=== PATIENT | male | born 1935 | race Hispanic/Latino ===

== ENCOUNTER 2018-03-02 11:12 | Inpatient (IN) | payer MEDICARE ==
--- NOTE | 2018-03-02 13:08 | XRay Report ---
AP CHEST: HISTORY: Short of breath No comparison. There are hazy lower lobe opacities which probably represent atelectasis or less likely small pleural effusions. The upper lung zones are clear. Heart size is within normal limits. Normal pulmonary vascularity. IMPRESSION: Bibasilar atelectatic changes.
[2018-03-02 13:17] LABS: Basophils # (Auto) 0.1 K/mm3 (0.0-0.1); Basophils % (Auto) 0.7 % (0.0-1.8); Eosinophils # (Auto) 0.3 K/mm3 (0.0-0.4); Eosinophils % (Auto) 2.5 % (0.0-4.3); Hematocrit 35.3 % (35.5-45.6); Hemoglobin 11.8 gm/dl (11.8-15.2); Lymphocytes # (Auto) 1.4 K/mm3 (1.2-5.4); Lymphocytes % (Auto) 13.2 % (13.4-35.0); Mean Corpuscular HGB Conc 34 % (32-34); Mean Corpuscular Hemoglobin 31 pg (28-32); Mean Corpuscular Volume 92 fl (84-94); Monocytes # (Auto) 0.7 K/mm3 (0.0-0.8); Monocytes % (Auto) 6.4 % (0.0-7.3); Platelet Count 243 K/mm3 (140-440); Red Blood Count 3.83 M/mm3 (3.65-5.03); Red Cell Distribution Width 14.5 % (13.2-15.2)
--- NOTE | 2018-03-02 13:25 | Emergency Department Report ---
HPI - General Chief Complaint: Dyspnea/Respdistress Time Seen by Provider: 03/02/18 12:29 - HPI HPI: 83-year-old male presents to the emergency department with complaint of shortness of breath that has been happening for "a while" but has worsened over the past few days and he has started to have some shortness of breath with exertion. His says that he has trouble taking even a few steps without getting out of breath. He has not oxygen dependent at home but presented to the emergency Department to triage with a pulse ox of 91%. He denies any chest pain, fever, nausea, vomiting. He has a history of insulin-dependent diabetes, arthritis, remote prostate cancer, hypertension and has chronic kidney disease. The patient just had a dialysis fistula placed but has not yet started dialysis. His primary care physician is a Dr. Isidoro Love. His auto tech is Dr. Simental, and his reefer engineer is Dr. Pandey. ED Past Medical Hx - Past Medical History Previous Medical History?: Yes Hx Hypertension: Yes Hx Renal Disease: Yes (renal insufficiency) Hx of Cancer: Yes (prostate) Hx Arthritis: Yes Additional medical history: CAD - Surgical History Past Surgical History?: Yes Hx Coronary Stent: Yes Additional Surgical History: Left fistula - Social History Smoking Status: Former Smoker - Medications Home Medications: Home Medications Medication Instructions Recorded Confirmed Last Taken Type Aspirin [Adult Low Dose Aspirin EC] 81 mg PO QAM 03/02/18 03/02/18 Unknown History Atorvastatin Calcium [Lipitor] 40 mg PO QDAY 03/02/18 03/02/18 Unknown History Calcitriol [Rocaltrol] 0.25 mcg PO Q48H 03/02/18 03/02/18 Unknown History Carvedilol [Coreg] 12.5 mg PO BID 03/02/18 03/02/18 Unknown History Clopidogrel Bisulfate [Plavix] 75 mg PO QDAY 03/02/18 03/02/18 Unknown History Doxazosin Mesylate [Cardura] 2 mg PO DAILY 03/02/18 03/02/18 Unknown History Ergocalciferol [Vitamin D2] 1 cap PO QWEEK 03/02/18 03/02/18 Unknown History ISOSORBIDE MONOnitrate [Imdur ER] 30 mg PO BID 03/02/18 03/02/18 Unknown History Insulin Detemir [Levemir Flextouch] 10 units SUB-Q QHS 03/02/18 03/02/18 Unknown History Lispro Insulin [Humalog] 10 units SUB-Q AC 03/02/18 03/02/18 Unknown History Saxagliptin HCl [Onglyza] 5 mg PO QDAY 03/02/18 03/02/18 Unknown History Torsemide [Demadex] 20 mg PO QDAY 03/02/18 03/02/18 Unknown History Zolpidem Tartrate [Ambien] 5 mg PO HS PRN 03/02/18 03/02/18 Unknown History ED Review of Systems ROS: Stated complaint: DIFFICULTY BREATHING Other details as noted in HPI Comment: All other systems reviewed and negative Constitutional: denies: chills, fever Eyes: denies: eye pain, eye discharge, vision change ENT: denies: ear pain, throat pain Respiratory: shortness of breath, SOB with exertion Cardiovascular: denies: chest pain, palpitations Gastrointestinal: denies: abdominal pain, nausea, diarrhea Genitourinary: denies: urgency, dysuria Musculoskeletal: denies: back pain, joint swelling, arthralgia Skin: denies: rash, lesions Neurological: denies: headache, weakness, paresthesias Physical Exam - Physical Exam Vital Signs: Vital Signs 03/02/18 03/02/18 03/02/18 11:54 12:24 12:30 Temperature 97.5 F L Pulse Rate 57 L 61 Respiratory 22 18 15 Rate Blood Pressure 132/61 167/54 Blood Pressure [Right] O2 Sat by Pulse 91 100 100 Oximetry 03/02/18 12:34 Temperature 97.8 F Pulse Rate 55 L Respiratory 17 Rate Blood Pressure Blood Pressure 167/54 [Right] O2 Sat by Pulse 100 Oximetry Physical Exam: GENERAL: The patient is well-developed well-nourished. HENT: Normocephalic. Atraumatic. Patient has moist mucous membranes. EYES: Extraocular motions are intact. Pupils equal reactive to light bilaterally. NECK: Supple. Trachea is midline. CHEST/LUNGS: Mild wheezing throughout the chest. There is tachypnea but no accessory muscle use. There is no respiratory distress noted. HEART/CARDIOVASCULAR: Regular. There is no tachycardia. There is no murmur. ABDOMEN: Abdomen is soft, nontender. Patient has normal bowel sounds. There is no abdominal distention. SKIN: Skin is warm and dry. NEURO: The patient is awake, alert, and oriented. The patient is cooperative. The patient has no focal neurologic deficits. The patient has normal speech. MUSCULOSKELETAL: There is no tenderness or deformity. There is no limitation range of motion. There is no evidence of acute injury. ED Course Vital Signs 03/02/18 03/02/18 03/02/18 11:54 12:24 12:30 Temperature 97.5 F L Pulse Rate 57 L 61 Respiratory 22 18 15 Rate Blood Pressure 132/61 167/54 Blood Pressure [Right] O2 Sat by Pulse 91 100 100 Oximetry 03/02/18 12:34 Temperature 97.8 F Pulse Rate 55 L Respiratory 17 Rate Blood Pressure Blood Pressure 167/54 [Right] O2 Sat by Pulse 100 Oximetry ED Medical Decision Making - Lab Data Result diagrams: 03/02/18 12:46 03/02/18 12:46 - EKG Data EKG shows normal: sinus rhythm (PVCs), axis, intervals, QRS complexes (LVH, Q waves to the septal leads), ST-T waves Rate: bradycardia (53 bpm) - EKG Data When compared to previous EKG there are: previous EKG unavailable Interpretation: other (sinus bradycardia with PVCs, LVH, Q waves to the septal leads) - Radiology Data Radiology results: report reviewed AP CHEST: HISTORY: Short of breath No comparison. There are hazy lower lobe opacities which probably represent atelectasis or less likely small pleural effusions. The upper lung zones are clear. Heart size is within normal limits. Normal pulmonary vascularity. IMPRESSION: Bibasilar atelectatic changes. Transcribed By: TTR Dictated By: OWEN GUERRA JR, MD Electronically Authenticated By: OWEN GUERRA JR, MD Signed Date/Time: 03/02/18 1259 VENTILATION/PERFUSION LUNG SCAN: 03/02/18 CLINICAL: Shortness of breath and elevated d-dimer. TECHNIQUE: 15.0 mCi of xenon-133 was administered by aerosol and 5.0 mCi of technetium 99m MAA was administered intravenously. Comparison is made to a same day chest x-ray. FINDINGS: Inhalation of Xenon gas demonstrates a less well aerated right lung compared to the left. The wash out phases show moderate retention of activity in both lungs. After injection of Technetium 99m macroaggregated albumin gamma camera imaging of the lungs in multiple projections demonstrates Heterogeneous diffuse perfusion of both lungs with the right lung less well perfused than the left. This matches the hypoventilation of the right lung on the ventilation portion of exam. No suspicious focal areas of perfusion deficiency are identified. IMPRESSION: Low probability for pulmonary embolus. Matched defects in perfusion and ventilation, particularly in the right lung are consistent with COPD. Transcribed By: REF Dictated By: NELSON CONTRERAS MD Electronically Authenticated By: NELSON CONTRERAS MD Signed Date/Time: 03/02/18 5876 - Medical Decision Making 83 yo M presents with acute on chronic shortness of breath but also presents with hypoxia. He does not have any supplemental oxygen at home. His labs show a slightly elevated troponin and a very elevated BNP level but the patient does have a history of chronic kidney disease. Chest x-ray does not show any pleural effusions but maybe more of some slight haziness or atelectasis. He had an elevated d-dimer so a VQ scan was done that shows low probability for pulmonary embolism but could be consistent with COPD. ABG was done on supplemental oxygen and was relatively unremarkable but at least does not show any acid base abnormalities. He was given some breathing treatments, steroids, antibiotics and he will be admitted to the hospital further evaluation and treatment. - Differential Diagnosis COPD, PE, ID, CHF, Pneumonia Critical Care Time: No Critical care attestation.: If time is entered above; I have spent that time in minutes in the direct care of this critically ill patient, excluding procedure time. ED Disposition Clinical Impression: Hypertension Qualifiers: Hypertension type: essential hypertension Qualified Code(s): I10 - Essential ( primary) hypertension Dyspnea Qualifiers: Dyspnea type: shortness of breath Qualified Code(s): R06.02 - Shortness of breath; R06.00 - Dyspnea, unspecified; R06.01 - Orthopnea CKD (chronic kidney disease) Qualifiers: Chronic kidney disease stage: unspecified stage Qualified Code(s): N18.9 - Chronic kidney disease, unspecified COPD (chronic obstructive pulmonary disease) Qualifiers: COPD type: unspecified COPD Qualified Code(s): J44.9 - Chronic obstructive pulmonary disease, unspecified Disposition: OP ADMIT IP TO THIS HOSP Is pt being admited?: Yes Condition: Stable Instructions: Hypertension (ED), Chronic Obstructive Pulmonary Disease (ED) Referrals: PRIMARY CARE, [Primary Care Provider] - 3-5 Days Time of Disposition: 16:06
[2018-03-02] MEDS ORDERED: DUONEB *Not for PRN Use IH ONE (13:32)
[2018-03-02 13:40] LABS: Calcium 8.3 mg/dL (8.4-10.2)
[2018-03-02 14:33] LABS: Chol/HDL Ratio 2.29 %
[2018-03-02] MEDS ORDERED: LEVAQUIN 750MG/150ML 750 MG/150 ML BAG IV ONE (15:02)
[2018-03-02 15:32] LABS: ABG HCO3 24.3 mmol/L (20.0-26.0); ABG Methemoglobin 0.5 % (0.0-1.5); ABG PCO2 42.4 mm Hg; ABG PH 7.375 pH Units (7.350-7.450); ABG PO2 89.1 mm Hg (80.0-90.0)
--- NOTE | 2018-03-02 15:48 | Nuclear Medicine Report ---
VENTILATION/PERFUSION LUNG SCAN: 03/02/18 CLINICAL: Shortness of breath and elevated d-dimer. TECHNIQUE: 15.0 mCi of xenon-133 was administered by aerosol and 5.0 mCi of technetium 99m MAA was administered intravenously. Comparison is made to a same day chest x-ray. FINDINGS: Inhalation of Xenon gas demonstrates a less well aerated right lung compared to the left. The wash out phases show moderate retention of activity in both lungs. After injection of Technetium 99m macroaggregated albumin gamma camera imaging of the lungs in multiple projections demonstrates Heterogeneous diffuse perfusion of both lungs with the right lung less well perfused than the left. This matches the hypoventilation of the right lung on the ventilation portion of exam. No suspicious focal areas of perfusion deficiency are identified. IMPRESSION: Low probability for pulmonary embolus. Matched defects in perfusion and ventilation, particularly in the right lung are consistent with COPD.
[2018-03-02] MEDS ORDERED: APRESOLINE IV ONE (16:09)
[2018-03-02] MEDS ORDERED: ZOFRAN IV PRN (22:26)
[2018-03-02] MEDS ORDERED: SODIUM CHLORIDE FLUSH SYRINGE 10 ML IV PRN (22:26)
[2018-03-02] MEDS ORDERED: TYLENOL PO PRN (22:26)
[2018-03-02] MEDS ORDERED: NORCO 5/325 PO PRN (22:26)
[2018-03-02] MEDS ORDERED: APRESOLINE IV PRN (22:34)
[2018-03-02] MEDS ORDERED: D50W (25GM) Syringe IV PRN (22:39)
--- NOTE | 2018-03-02 23:51 | History and Physical Report ---
History of Present Illness Date of examination: 03/02/18 Date of admission: 03/02/18 22:26 Chief complaint: Shortness of breath History of present illness: Patient is a 83-year-old male presented with 2 days history of shortness of breath with mild exertion. He has positive history of left leg swelling. He denies chest pain, palpitation, fever or chills, cough, orthopnea or PND. Past History Past Medical History: CAD, cancer (prostate), COPD, diabetes, hypertension, renal failure Past Surgical History: Other (cardiac stents placement, left AV fistula placement) Social history: other (ex-smoker, denies alcohol and illicit drug use) Family history: other (reviewed and non-contributory) Medications and Allergies Allergies Allergy/AdvReac Type Severity Reaction Status Date / Time No Known Allergies Allergy Unverified 03/02/18 11:54 Home Medications Medication Instructions Recorded Confirmed Last Taken Type Aspirin [Adult Low Dose Aspirin EC] 81 mg PO QAM 03/02/18 03/02/18 Unknown History Atorvastatin Calcium [Lipitor] 40 mg PO QDAY 03/02/18 03/02/18 Unknown History Calcitriol [Rocaltrol] 0.25 mcg PO Q48H 03/02/18 03/02/18 Unknown History Carvedilol [Coreg] 12.5 mg PO BID 03/02/18 03/02/18 Unknown History Clopidogrel Bisulfate [Plavix] 75 mg PO QDAY 03/02/18 03/02/18 Unknown History Doxazosin Mesylate [Cardura] 2 mg PO DAILY 03/02/18 03/02/18 Unknown History Ergocalciferol [Vitamin D2] 1 cap PO QWEEK 03/02/18 03/02/18 Unknown History ISOSORBIDE MONOnitrate [Imdur ER] 30 mg PO BID 03/02/18 03/02/18 Unknown History Insulin Detemir [Levemir Flextouch] 10 units SUB-Q QHS 03/02/18 03/02/18 Unknown History Lispro Insulin [Humalog] 10 units SUB-Q AC 03/02/18 03/02/18 Unknown History Saxagliptin HCl [Onglyza] 5 mg PO QDAY 03/02/18 03/02/18 Unknown History Torsemide [Demadex] 20 mg PO QDAY 03/02/18 03/02/18 Unknown History Zolpidem Tartrate [Ambien] 5 mg PO HS PRN 03/02/18 03/02/18 Unknown History Active Meds: Active Medications Acetaminophen (Tylenol) 650 mg PO Q4H PRN PRN Reason: Pain MILD(1-3)/Fever >100.5/CHOPRA Acetaminophen/Hydrocodone Bitart ([place] 5/325) 1 each PO Q6H PRN PRN Reason: Pain, Moderate (4-6) Albuterol/Ipratropium (Duoneb *Not For Prn Use*) 1 ampul IH QIDRT ANT Dextrose (D50w (25gm) Syringe) 50 ml IV PRN PRN PRN Reason: Hypoglycemia Doxazosin Mesylate (Cardura) 2 mg PO DAILY [facility] Heparin Sodium (Porcine) (Heparin) 5,000 unit SUB-Q Q12HR ANT Hydralazine HCl (Apresoline) 20 mg IV Q6H PRN PRN Reason: Blood Pressure Insulin Human Lispro (Humalog) 0 unit SUB-Q ACHS ANT; Protocol Isosorbide Mononitrate (Imdur) 30 mg PO BID ANT Methylprednisolone Sodium Succinate (Solu-Medrol) 40 mg IV Q12H ANT Ondansetron HCl (Zofran) 4 mg IV Q8H PRN PRN Reason: Nausea And Vomiting Sodium Chloride (Sodium Chloride Flush Syringe 10 Ml) 10 ml IV BID ANT Sodium Chloride (Sodium Chloride Flush Syringe 10 Ml) 10 ml IV PRN PRN PRN Reason: LINE FLUSH Review of Systems All systems: negative (except in the HPI and positive hearing impairment) Exam - Constitutional Vitals: Temp Pulse Resp BP Pulse Ox 97.8 F 58 L 18 187/67 99 03/02/18 12:34 03/02/18 22:50 03/02/18 22:50 03/02/18 22:50 03/02/18 22:50 General appearance: Present: no acute distress, well-nourished - EENT Eyes: Present: PERRL ENT: hearing intact, clear oral mucosa - Neck Neck: Present: supple, normal ROM - Respiratory Respiratory effort: normal Respiratory: right: diminished, bilateral: CTA - Cardiovascular Heart Sounds: Present: S1 & S2. Absent: rub, click - Extremities Extremities: pulses symmetrical Extremity abnormal: edema (left leg ) Peripheral Pulses: within normal limits - Abdominal General gastrointestinal: Present: soft, non-tender, non-distended, normal bowel sounds Male genitourinary: Present: normal - Integumentary Integumentary: Present: clear, warm, dry - Musculoskeletal Musculoskeletal: gait normal, strength equal bilaterally - Psychiatric Psychiatric: appropriate mood/affect, intact judgment & insight - Neurologic Neurologic: CNII-XII intact, moves all extremities Results - Labs CBC & Chem 7: 03/02/18 12:46 03/02/18 12:46 Labs: Laboratory Last Values WBC 10.2 K/mm3 (4.5-11.0) 03/02/18 12:46 RBC 3.83 M/mm3 (3.65-5.03) 03/02/18 12:46 Hgb 11.8 gm/dl (11.8-15.2) 03/02/18 12:46 Hct 35.3 % (35.5-45.6) L 03/02/18 12:46 MCV 92 fl (84-94) 03/02/18 12:46 MCH 31 pg (28-32) 03/02/18 12:46 MCHC 34 % (32-34) 03/02/18 12:46 RDW 14.5 % (13.2-15.2) 03/02/18 12:46 Plt Count 243 K/mm3 (140-440) 03/02/18 12:46 Lymph % (Auto) 13.2 % (13.4-35.0) L 03/02/18 12:46 [place] % (Auto) 6.4 % (0.0-7.3) 03/02/18 12:46 Eos % (Auto) 2.5 % (0.0-4.3) 03/02/18 12:46 Baso % (Auto) 0.7 % (0.0-1.8) 03/02/18 12:46 Lymph # 1.4 K/mm3 (1.2-5.4) 03/02/18 12:46 [place] # 0.7 K/mm3 (0.0-0.8) 03/02/18 12:46 Eos # 0.3 K/mm3 (0.0-0.4) 03/02/18 12:46 Baso # 0.1 K/mm3 (0.0-0.1) 03/02/18 12:46 Seg Neutrophils % 77.2 % (40.0-70.0) H 03/02/18 12:46 Seg Neutrophils # 7.9 K/mm3 (1.8-7.7) H 03/02/18 12:46 D-Dimer 649.52 ng/mlDDU (0-234) H 03/02/18 12:46 ABG pH 7.375 pH Units (7.350-7.450) 03/02/18 15:26 ABG pCO2 42.4 mm Hg 03/02/18 15: ABG pO2 89.1 mm Hg (80.0-90.0) 03/02/18 15: ABG HCO3 24.3 mmol/L (20.0-26.0) 03/02/18 15: ABG O2 Saturation 97.0 % (95.0-99.0) 03/02/18 15: ABG O2 Content 14.9 (0.0-44) 03/02/18 15: ABG Base Excess -1.0 mmol/L (-2.0-3.0) 03/02/18 15: ABG Hemoglobin 11.1 gm/dl (14.0-18.0) L 03/02/18 15:26 ABG Carboxyhemoglobin 1.5 % (0.0-5.0) 03/02/18 15:26 ABG Methemoglobin 0.5 % (0.0-1.5) 03/02/18 15: Oxyhemoglobin 95.1 % (95.0-99.0) 03/02/18 15: FiO2 28 % 03/02/18 15:26 Sodium 137 mmol/L (137-145) 03/02/18 12:46 Potassium 4.5 mmol/L (3.6-5.0) 03/02/18 12:46 Chloride 99.3 mmol/L (98-107) 03/02/18 12:46 Carbon Dioxide 25 mmol/L (22-30) 03/02/18 12:46 Anion Gap 17 mmol/L 03/02/18 12:46 BUN 33 mg/dL (9-20) H 03/02/18 12:46 Creatinine 3.6 mg/dL (0.8-1.5) H 03/02/18 12:46 Estimated GFR 16 ml/min 03/02/18 12:46 BUN/Creatinine Ratio 9 % 03/02/18 12:46 Glucose 211 mg/dL (75-100) H 03/02/18 12:46 Calcium 8.3 mg/dL (8.4-10.2) L 03/02/18 12:46 Troponin T 0.046 ng/mL (0.00-0.029) H 03/02/18 12:46 NT-Pro-B Natriuret Pep 99185 pg/mL (0-900) H 03/02/18 12:46 Triglycerides 85 mg/dL (2-149) 03/02/18 12:46 Cholesterol 140 mg/dL (50-199) 03/02/18 12:46 LDL Cholesterol Direct 72 mg/dL (50-130) 03/02/18 12:46 HDL Cholesterol 61 mg/dL (40-59) H 03/02/18 12:46 Cholesterol/HDL Ratio 2.29 % 03/02/18 12:46 Assessment and Plan Assessment and plan: Acute mild COPD exacerbation -Patient will be placed on IV steroid and duonebs Hypertensive urgency -Patient will be placed on both scheduled and when necessary antihypertensives Left lower extremity edema -Venous Doppler ultrasound to assess for DVT Insulin-dependent diabetes mellitus type 2 with Hyperglycemia -Patient will be placed on both basal and prandial insulin regimen History of CAD, stable History of Chronic renal failure -Patient's baseline creatinine level is unknown -He recently had an AV fistula placement for possible hemodialysis Prophylaxis -DVT prophylaxis with heparin 35 minutes spent in coordinating care
[2018-03-03] MEDS: HEPARIN SUB-Q SCH ×3 (00:38→22:51)
[2018-03-03] MEDS: CARDURA PO SCH ×2 (00:40→09:10)
[2018-03-03] MEDS: IMDUR PO SCH ×3 (00:40→22:51)
[2018-03-03 06:27] LABS: Calcium 8.6 mg/dL (8.4-10.2)
[2018-03-03] MEDS: HumaLOG SUB-Q SCH ×4 (07:23→22:51)
[2018-03-03] MEDS: DUONEB *Not for PRN Use IH SCH ×4 (07:40→19:15)
--- NOTE | 2018-03-03 08:13 | Progress Note ---
Assessment and Plan Assessment and plan: --Acute on chronic congestive heart failure probably systolic dysfunction Unknown ejection fraction, anti-failure medications and supportive care, low- sodium diet, fluid restriction, check echocardiogram for left ventricular function ejection fraction, cardiology consultation --Acute on chronic kidney disease stage III Patient follows with nephrology, closely monitor renal function and avoid nephrotoxins gentle hydration as needed, nephrology consultation --Malignant hypertension upon admission; moderate control Continue current antihypertensives when necessary medications --History of coronary artery disease; continue current cardiac medications Cardiology evaluation --DVT prophylaxis with heparin --Full CODE STATUS Closely monitor the patient and just management as needed Discharge planning planning per case management when medically stable History Interval history: Patient seen and examined medical records reviewed Admitted with worsening shortness of breath Noted to have acute on chronic systolic congestive heart failure Feels slightly better Denies chest pain or shortness of breath Vital signs reviewed Hospitalist Physical - Constitutional Vitals: Temp Pulse Resp BP Pulse Ox 98.8 F 76 20 209/76 95 03/03/18 06:38 03/03/18 07:51 03/03/18 07:51 03/03/18 06:45 03/03/18 06:38 General appearance: Present: no acute distress, well-nourished - EENT Eyes: Present: PERRL, EOM intact - Neck Neck: Present: supple, normal ROM - Respiratory Respiratory effort: normal Respiratory: bilateral: diminished, rales, negative: rhonchi, wheezing - Cardiovascular Rhythm: regular Heart Sounds: Present: S1 & S2 - Extremities Extremities: no ischemia, No edema - Abdominal General gastrointestinal: soft, non-tender, non-distended, normal bowel sounds - Integumentary Integumentary: Present: clear, warm - Psychiatric Psychiatric: appropriate mood/affect, cooperative - Neurologic Neurologic: CNII-XII intact, moves all extremities Results - Labs CBC & Chem 7: 03/02/18 12:46 03/03/18 05:18 Labs: Laboratory Last Values WBC 10.2 K/mm3 (4.5-11.0) 03/02/18 12:46 RBC 3.83 M/mm3 (3.65-5.03) 03/02/18 12:46 Hgb 11.8 gm/dl (11.8-15.2) 03/02/18 12:46 Hct 35.3 % (35.5-45.6) L 03/02/18 12:46 MCV 92 fl (84-94) 03/02/18 12:46 MCH 31 pg (28-32) 03/02/18 12:46 MCHC 34 % (32-34) 03/02/18 12:46 RDW 14.5 % (13.2-15.2) 03/02/18 12:46 Plt Count 243 K/mm3 (140-440) 03/02/18 12:46 Lymph % (Auto) 13.2 % (13.4-35.0) L 03/02/18 12:46 [place] % (Auto) 6.4 % (0.0-7.3) 03/02/18 12:46 Eos % (Auto) 2.5 % (0.0-4.3) 03/02/18 12:46 Baso % (Auto) 0.7 % (0.0-1.8) 03/02/18 12:46 Lymph # 1.4 K/mm3 (1.2-5.4) 03/02/18 12:46 [place] # 0.7 K/mm3 (0.0-0.8) 03/02/18 12:46 Eos # 0.3 K/mm3 (0.0-0.4) 03/02/18 12:46 Baso # 0.1 K/mm3 (0.0-0.1) 03/02/18 12:46 Seg Neutrophils % 77.2 % (40.0-70.0) H 03/02/18 12:46 Seg Neutrophils # 7.9 K/mm3 (1.8-7.7) H 03/02/18 12:46 D-Dimer 649.52 ng/mlDDU (0-234) H 03/02/18 12:46 ABG pH 7.375 pH Units (7.350-7.450) 03/02/18 15:26 ABG pCO2 42.4 mm Hg 03/02/18 15: ABG pO2 89.1 mm Hg (80.0-90.0) 03/02/18 15: ABG HCO3 24.3 mmol/L (20.0-26.0) 03/02/18 15: ABG O2 Saturation 97.0 % (95.0-99.0) 03/02/18 15:26 ABG O2 Content 14.9 (0.0-44) 03/02/18 15:26 ABG Base Excess -1.0 mmol/L (-2.0-3.0) 03/02/18 15: ABG Hemoglobin 11.1 gm/dl (14.0-18.0) L 03/02/18 15: ABG Carboxyhemoglobin 1.5 % (0.0-5.0) 03/02/18: ABG Methemoglobin 0.5 % (0.0-1.5) 03/02/18 15: Oxyhemoglobin 95.1 % (95.0-99.0) 03/02/18 15: FiO2 28 % 03/02/18 15: Sodium 138 mmol/L (137-145) 03/03/18 05:18 Potassium 4.7 mmol/L (3.6-5.0) 03/03/18 05:18 Chloride 99.7 mmol/L (98-107) 03/03/18 05:18 Carbon Dioxide 24 mmol/L (22-30) 03/03/18 05:18 Anion Gap 19 mmol/L 03/03/18 05:18 BUN 36 mg/dL (9-20) H 03/03/18 05:18 Creatinine 3.5 mg/dL (0.8-1.5) H 03/03/18 05:18 Estimated GFR 17 ml/min 03/03/18 05:18 BUN/Creatinine Ratio 10 % 03/03/18 05:18 Glucose 197 mg/dL (75-100) H 03/03/18 05:18 POC Glucose 226 (70-105) H 03/03/18 07:10 Calcium 8.6 mg/dL (8.4-10.2) 03/03/18 05:18 Troponin T 0.041 ng/mL (0.00-0.029) H 03/03/18 01:27 NT-Pro-B Natriuret Pep 47845 pg/mL (0-900) H 03/02/18 12:46 Triglycerides 85 mg/dL (2-149) 03/02/18 12:46 Cholesterol 140 mg/dL (50-199) 03/02/18 12:46 LDL Cholesterol Direct 72 mg/dL (50-130) 03/02/18 12:46 HDL Cholesterol 61 mg/dL (40-59) H 03/02/18 12:46 Cholesterol/HDL Ratio 2.29 % 03/02/18 12:46
[2018-03-03] MEDS ORDERED: ROCALTROL PO SCH (09:00)
[2018-03-03] MEDS: HALFPRIN EC PO SCH (09:12)
[2018-03-03] MEDS: COREG PO SCH ×2 (09:12→22:50)
[2018-03-03] MEDS: PLAVIX PO SCH (09:12)
[2018-03-03] MEDS: SODIUM CHLORIDE FLUSH SYRINGE 10 ML IV SCH ×2 (09:21→22:56)
[2018-03-03] MEDS ORDERED: DEMADEX PO SCH (10:00)
[2018-03-03] MEDS ORDERED: NON-FORMULARY (Doxazosin Mesylate [Cardura] 2 MG) PO SCH (10:00)
[2018-03-03] MEDS ORDERED: NON-FORMULARY (Torsemide [Demadex] 20 MG) PO SCH (10:00)
--- NOTE | 2018-03-03 11:39 | Consultation ---
History of Present Illness Consult date: 03/03/18 Requesting physician: MANGO PINEDA Consult reason: congestive heart failure History of present illness: The pt is an 83 YO male with a past medical history significant for ICMP, CAD s/ p PCI of LAD on 12/12/2017 (also with circ lesion and RCA lesion being treated medically), HTN, HLP, DM, prostate CA, renal insufficiency, bilateral carotid stenosis. He is followed in our office by Dr. Simental. He presented with c/o progressively worsening SOB for several days prior to arrival. He also admits to some nausea with no vomiting. He denies any chest pain, palpitations, vomiting, diaphoresis, dizziness or syncope. He reports compliance with his medication regimen. 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 Echo done 11/2017 showed EF 40-45%, mildly dilated LA, mild LVH, grade I diastolic dysfunction, mild TR, mild MVR, large pleural effusion in left lateral region. Past History Past Medical History: CAD, cancer (prostate), COPD, diabetes, hypertension, renal failure Past Surgical History: Other (cardiac stents placement, left AV fistula placement) Social history: other (ex-smoker, denies alcohol and illicit drug use) Family history: other (reviewed and non-contributory) Medications and Allergies Allergies Allergy/AdvReac Type Severity Reaction Status Date / Time No Known Allergies Allergy Unverified 03/02/18 11:54 Home Medications Medication Instructions Recorded Confirmed Last Taken Type Aspirin [Adult Low Dose Aspirin EC] 81 mg PO QAM 03/02/18 03/02/18 Unknown History Atorvastatin Calcium [Lipitor] 40 mg PO QDAY 03/02/18 03/02/18 Unknown History Calcitriol [Rocaltrol] 0.25 mcg PO Q48H 03/02/18 03/02/18 Unknown History Carvedilol [Coreg] 12.5 mg PO BID 03/02/18 03/02/18 Unknown History Clopidogrel Bisulfate [Plavix] 75 mg PO QDAY 03/02/18 03/02/18 Unknown History Doxazosin Mesylate [Cardura] 2 mg PO DAILY 03/02/18 03/02/18 Unknown History Ergocalciferol [Vitamin D2] 1 cap PO QWEEK 03/02/18 03/02/18 Unknown History ISOSORBIDE MONOnitrate [Imdur ER] 30 mg PO BID 03/02/18 03/02/18 Unknown History Insulin Detemir [Levemir Flextouch] 10 units SUB-Q QHS 03/02/18 03/02/18 Unknown History Lispro Insulin [Humalog] 10 units SUB-Q AC 03/02/18 03/02/18 Unknown History Saxagliptin HCl [Onglyza] 5 mg PO QDAY 03/02/18 03/02/18 Unknown History Torsemide [Demadex] 20 mg PO QDAY 03/02/18 03/02/18 Unknown History Zolpidem Tartrate [Ambien] 5 mg PO HS PRN 03/02/18 03/02/18 Unknown History Active Meds: Active Medications Acetaminophen (Tylenol) 650 mg PO Q4H PRN PRN Reason: Pain MILD(1-3)/Fever >100.5/CHOPRA Acetaminophen/Hydrocodone Bitart ([place] 5/325) 1 each PO Q6H PRN PRN Reason: Pain, Moderate (4-6) Last Admin: 03/03/18 00:42 Dose: 1 each Albuterol/Ipratropium (Duoneb *Not For Prn Use*) 1 ampul IH QIDRT [facility] Last Admin: 03/03/18 07:40 Dose: 1 ampul Aspirin (Halfprin Ec) 81 mg PO QAM [facility] Last Admin: 03/03/18 09:12 Dose: 81 mg Atorvastatin Calcium (Lipitor) 40 mg PO QDAY [facility] Last Admin: 03/03/18 09:12 Dose: 40 mg Calcitriol (Rocaltrol) 0.25 mcg PO Q48H [facility] Last Admin: 03/03/18 09:12 Dose: 0.25 mcg Carvedilol (Coreg) 12.5 mg PO BID [facility] Last Admin: 03/03/18 09:12 Dose: 12.5 mg Clopidogrel Bisulfate (Plavix) 75 mg PO QDAY [facility] Last Admin: 03/03/18 09:12 Dose: 75 mg Dextrose (D50w (25gm) Syringe) 50 ml IV PRN PRN PRN Reason: Hypoglycemia Doxazosin Mesylate (Cardura) 2 mg PO DAILY [facility] Last Admin: 03/03/18 09:10 Dose: 2 mg Ergocalciferol (Vitamin D2) 50,000 unit PO QWEEK [facility] Heparin Sodium (Porcine) (Heparin) 5,000 unit SUB-Q Q12HR [facility] Last Admin: 03/03/18 09:13 Dose: 5,000 unit Hydralazine HCl (Apresoline) 20 mg IV Q6H PRN PRN Reason: Blood Pressure Last Admin: 03/03/18 06:45 Dose: 20 mg Insulin Glargine (Lantus) 10 units SUB-Q QHS [facility] Insulin Human Lispro (Humalog) 0 unit SUB-Q ACHS [facility]; Protocol Last Admin: 03/03/18 11:12 Dose: 8 unit Isosorbide Mononitrate (Imdur) 30 mg PO BID [facility] Last Admin: 03/03/18 09:22 Dose: 30 mg Methylprednisolone Sodium Succinate (Solu-Medrol) 40 mg IV Q12H [facility] Last Admin: 03/03/18 00:38 Dose: 40 mg Ondansetron HCl (Zofran) 4 mg IV Q8H PRN PRN Reason: Nausea And Vomiting Sodium Chloride (Sodium Chloride Flush Syringe 10 Ml) 10 ml IV BID [facility] Last Admin: 03/03/18 09:21 Dose: 10 ml Sodium Chloride (Sodium Chloride Flush Syringe 10 Ml) 10 ml IV PRN PRN PRN Reason: LINE FLUSH Torsemide (Demadex) 20 mg PO DAILY [facility] Last Admin: 03/03/18 09:11 Dose: 20 mg Zolpidem Tartrate (Ambien) 5 mg PO HS PRN PRN Reason: Sleep Review of Systems Constitutional: no weight loss, no weight gain, no fever, no chills, no sweats Ears, nose, mouth and throat: no ear pain, no nose pain, no sinus pressure, no sinus pain Cardiovascular: orthopnea, shortness of breath, dyspnea on exertion, no chest pain, no palpitations, no rapid/irregular heart beat, no syncope, no lightheadedness Respiratory: shortness of breath, dyspnea on exertion, no cough, no congestion, no wheezing, no pain on inspiration Gastrointestinal: nausea, no abdominal pain, no vomiting, no diarrhea, no constipation, no change in bowel habits Genitourinary Male: no dysuria, no hematuria, no flank pain, no discharge, no urinary frequency, no urinary hesitancy Musculoskeletal: no neck stiffness, no neck pain, no shooting arm pain, no arm numbness/tingling, no low back pain, no shooting leg pain Integumentary: no rash, no pruritis, no redness, no sores, no wounds Neurological: no head injury, no paralysis, no weakness, no parathesias, no numbness, no tingling, no seizures, no syncope Psychiatric: no anxiety Endocrine: no cold intolerance, no heat intolerance Hematologic/Lymphatic: no easy bruising, no easy bleeding, no lymphadenopathy Allergic/Immunologic: no urticaria, no wheezing, no persistent infections Physical Examination Vital Signs Temp Pulse Resp BP Pulse Ox 97.5 F L 57 L 22 132/61 91 03/02/18 11:54 03/02/18 11:54 03/02/18 11:54 03/02/18 11:54 03/02/18 11:54 General appearance: no acute distress HEENT: Positive: PERRL, Normocephaly, Mucus Membranes Moist Neck: Positive: neck supple, trachea midline Cardiac: Positive: Reg Rate and Rhythm, S1/S2 Lungs: Positive: Decreased Breath Sounds Neuro: Positive: Grossly Intact Abdomen: Positive: Soft. Negative: Tender Skin: Positive: Clear. Negative: Rash, Wound Musculoskeletal: No Fluid Collection, No Pain, Normal Range of Motion Extremities: Absent: edema Results 03/02/18 12:46 03/03/18 05:18 Lipids 03/02/18 Range/Units 12:46 Triglycerides 85 (2-149) mg/dL Cholesterol 140 (50-199) mg/dL HDL Cholesterol 61 H (40-59) mg/dL Cholesterol/HDL Ratio 2.29 % CBC 03/02/18 Range/Units 12:46 WBC 10.2 (4.5-11.0) K/mm3 RBC 3.83 (3.65-5.03) M/mm3 Hgb 11.8 (11.8-15.2) gm/dl Hct 35.3 L (35.5-45.6) % Plt Count 243 (140-440) K/mm3 Lymph # 1.4 (1.2-5.4) K/mm3 [place] # 0.7 (0.0-0.8) K/mm3 Eos # 0.3 (0.0-0.4) K/mm3 Baso # 0.1 (0.0-0.1) K/mm3 Comprehensive Metabolic Panel 03/02/18 03/03/18 Range/Units 12:46 05:18 Sodium 137 138 (137-145) mmol/L Potassium 4.5 4.7 (3.6-5.0) mmol/L Chloride 99.3 99.7 (98-107) mmol/L Carbon Dioxide 25 24 (22-30) mmol/L BUN 33 H 36 H (9-20) mg/dL Creatinine 3.6 H 3.5 H (0.8-1.5) mg/dL Glucose 211 H 197 H (75-100) mg/dL Calcium 8.3 L 8.6 (8.4-10.2) mg/dL - Imaging and Cardiology Echo: report reviewed (11/2017 showed EF 40-45%, mildly dilated LA, mild LVH, grade I diastolic dysfunction, mild TR, mild MVR, large pleural effusion in left lateral region. ) Cardiac cath: report reviewed (PCI of LAD on 12/12/2017 (also with circ lesion and RCA lesion being treated medically)) EKG: report reviewed, image reviewed EKG interpretations - Telemetry EKG Rhythm: Sinus Rhythm - EKG Sinus rhythms and dysrhythmias: sinus rhythm Chamber hypertrophy or enlargement: left ventricular hypertro Repolarization changes or abnormalities: repolarization abn secondary to ventricular hypertrophy Myocardial infarction: anterior DE (old age or i Assessment and Plan Assessment: Acute combined systolic and diastolic heart failure Elevated DDimer - V/Q scan low prob for PE ICMP CAD s/p PCI of LAD on 12/12/2017 (also with circ lesion and RCA lesion being treated medically) Minimally elevated troponins HTN HLP DM H/o prostate CA Renal insufficiency Bilateral carotid stenosis Plan: Agree with current cardiac regimen. Volume-optimization per nephrology. Await nephrology consultation. No indication for repeat echo or ischemic evaluation at this time. Assessment and plan reviewed with pt and pt's at bedside. The patient has been seen in conjunction with Dr. Cramer who agrees with the assessment and plan of care.
--- NOTE | 2018-03-03 13:28 | Consultation ---
History of Present Illness - Reason for Consult Consult date: 03/03/18 chronic renal failure Requesting physician: MANGO PINEDA - History of Present Illness 83-year-old male presents to the emergency department with complaint of shortness of breath that has been happening for "a while" but has worsened over the past few days and he has started to have some shortness of breath with exertion. His says that he has trouble taking even a few steps without getting out of breath. He has not oxygen dependent at home but presented to the emergency Department to triage with a pulse ox of 91%. He denies any chest pain, fever, nausea, vomiting. He has a history of insulin-dependent diabetes, arthritis, remote prostate cancer, hypertension and has chronic kidney disease. The patient just had a dialysis fistula placed but has not yet started dialysis. His primary care physician is a Dr. Isidoro Love. 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 He had a AVF placed on 02/22/[address] Chawla Past History Past Medical History: CAD, cancer (prostate), COPD, diabetes, hypertension, renal failure Past Surgical History: Other (cardiac stents placement, left AV fistula placement) Social history: other (ex-smoker, denies alcohol and illicit drug use) Family history: other (reviewed and non-contributory) Medications and Allergies Allergies Allergy/AdvReac Type Severity Reaction Status Date / Time No Known Allergies Allergy Unverified 03/02/18 11:54 Home Medications Medication Instructions Recorded Confirmed Last Taken Type Aspirin [Adult Low Dose Aspirin EC] 81 mg PO QAM 03/02/18 03/02/18 Unknown History Atorvastatin Calcium [Lipitor] 40 mg PO QDAY 03/02/18 03/02/18 Unknown History Calcitriol [Rocaltrol] 0.25 mcg PO Q48H 03/02/18 03/02/18 Unknown History Carvedilol [Coreg] 12.5 mg PO BID 03/02/18 03/02/18 Unknown History Clopidogrel Bisulfate [Plavix] 75 mg PO QDAY 03/02/18 03/02/18 Unknown History Doxazosin Mesylate [Cardura] 2 mg PO DAILY 03/02/18 03/02/18 Unknown History Ergocalciferol [Vitamin D2] 1 cap PO QWEEK 03/02/18 03/02/18 Unknown History ISOSORBIDE MONOnitrate [Imdur ER] 30 mg PO BID 03/02/18 03/02/18 Unknown History Insulin Detemir [Levemir Flextouch] 10 units SUB-Q QHS 03/02/18 03/02/18 Unknown History Lispro Insulin [Humalog] 10 units SUB-Q AC 03/02/18 03/02/18 Unknown History Saxagliptin HCl [Onglyza] 5 mg PO QDAY 03/02/18 03/02/18 Unknown History Torsemide [Demadex] 20 mg PO QDAY 03/02/18 03/02/18 Unknown History Zolpidem Tartrate [Ambien] 5 mg PO HS PRN 03/02/18 03/02/18 Unknown History Active Meds: Active Medications Acetaminophen (Tylenol) 650 mg PO Q4H PRN PRN Reason: Pain MILD(1-3)/Fever >100.5/CHOPRA Acetaminophen/Hydrocodone Bitart ([place] 5/325) 1 each PO Q6H PRN PRN Reason: Pain, Moderate (4-6) Last Admin: 03/03/18 00:42 Dose: 1 each Albuterol/Ipratropium (Duoneb *Not For Prn Use*) 1 ampul IH QIDRT [facility] Last Admin: 03/03/18 12:55 Dose: 1 ampul Aspirin (Halfprin Ec) 81 mg PO QAM [facility] Last Admin: 03/03/18 09:12 Dose: 81 mg Atorvastatin Calcium (Lipitor) 40 mg PO QDAY [facility] Last Admin: 03/03/18 09:12 Dose: 40 mg Calcitriol (Rocaltrol) 0.25 mcg PO Q48H [facility] Last Admin: 03/03/18 09:12 Dose: 0.25 mcg Carvedilol (Coreg) 12.5 mg PO BID [facility] Last Admin: 03/03/18 09:12 Dose: 12.5 mg Clopidogrel Bisulfate (Plavix) 75 mg PO QDAY [facility] Last Admin: 03/03/18 09:12 Dose: 75 mg Dextrose (D50w (25gm) Syringe) 50 ml IV PRN PRN PRN Reason: Hypoglycemia Doxazosin Mesylate (Cardura) 2 mg PO DAILY [facility] Last Admin: 03/03/18 09:10 Dose: 2 mg Ergocalciferol (Vitamin D2) 50,000 unit PO QWEEK [facility] Heparin Sodium (Porcine) (Heparin) 5,000 unit SUB-Q Q12HR [facility] Last Admin: 03/03/18 09:13 Dose: 5,000 unit Hydralazine HCl (Apresoline) 20 mg IV Q6H PRN PRN Reason: Blood Pressure Last Admin: 03/03/18 06:45 Dose: 20 mg Insulin Glargine (Lantus) 10 units SUB-Q QHS [facility] Insulin Human Lispro (Humalog) 0 unit SUB-Q ACHS [facility]; Protocol Last Admin: 03/03/18 11:12 Dose: 8 unit Isosorbide Mononitrate (Imdur) 30 mg PO BID [facility] Last Admin: 03/03/18 09:22 Dose: 30 mg Methylprednisolone Sodium Succinate (Solu-Medrol) 40 mg IV Q12H [facility] Last Admin: 03/03/18 12:34 Dose: 40 mg Ondansetron HCl (Zofran) 4 mg IV Q8H PRN PRN Reason: Nausea And Vomiting Sodium Chloride (Sodium Chloride Flush Syringe 10 Ml) 10 ml IV BID [facility] Last Admin: 03/03/18 09:21 Dose: 10 ml Sodium Chloride (Sodium Chloride Flush Syringe 10 Ml) 10 ml IV PRN PRN PRN Reason: LINE FLUSH Torsemide (Demadex) 20 mg PO DAILY [facility] Last Admin: 03/03/18 09:11 Dose: 20 mg Zolpidem Tartrate (Ambien) 5 mg PO HS PRN PRN Reason: Sleep Review of Systems All systems: negative (as noted above) Exam - Vital Signs Vital signs: Vital Signs Temp Pulse Resp BP Pulse Ox 97.5 F L 57 L 22 132/61 91 03/02/18 11:54 03/02/18 11:54 03/02/18 11:54 03/02/18 11:54 03/02/18 11:54 - General Appearance General appearance: well-developed, well-nourished, appears stated age EENT: PERRL, mucous membranes moist Neck: Present: neck supple, trachea midline. Absent: JVD/HJR, Masses Respiratory: Rales (fine bibasal crackles ) Heart: regular, normal heart rate Gastrointestinal: Present: normal, normoactive bowel sounds Integumentary: other (1+ edema . AVF left UE . Good bruit and thrill ) Results - Lab Results 03/02/18 12:46 03/03/18 05:18 Most recent lab results ABG pH 7.375 pH Units (7.350-7.450) 03/02/18 15:26 ABG pCO2 42.4 mm Hg 03/02/18 15:26 ABG pO2 89.1 mm Hg (80.0-90.0) 03/02/18 15:26 ABG HCO3 24.3 mmol/L (20.0-26.0) 03/02/18 15:26 ABG O2 Saturation 97.0 % (95.0-99.0) 03/02/18 15:26 Calcium 8.6 mg/dL (8.4-10.2) 03/03/18 05:18 Assessment and Plan Impression * CKD stage 4 . Most likely secondary to DM * CHF * Anemia * Hypertension * diabetes * COPD * Prostate cancer Recommendation * His renal function is at baseline . Serum creatinine was 3.6 in January as well * He seems to be responding to diuretics . No urgent indication to initiate dialysis * Check 24 hour urine for creatinine clearance * Continue loop diuretics * Avoid nephrotoxins * Monitor fluid status and electrolytes closely * Thanks, Shall follow with you
[2018-03-03] MEDS: LASIX IV SCH (16:59)
[2018-03-03] MEDS ORDERED: AMBIEN PO PRN (22:00)
[2018-03-03] MEDS ORDERED: LANTUS SUB-Q SCH (22:00)
[2018-03-04] MEDS: LASIX IV SCH (06:13)
[2018-03-04 06:47] LABS: Calcium 8.4 mg/dL (8.4-10.2)
[2018-03-04] MEDS: DUONEB *Not for PRN Use IH SCH ×2 (08:10→12:44)
[2018-03-04] MEDS: HumaLOG SUB-Q SCH ×5 (08:29→17:07)
[2018-03-04] MEDS: PLAVIX PO SCH (09:31)
[2018-03-04] MEDS: COREG PO SCH (09:32)
[2018-03-04] MEDS: HALFPRIN EC PO SCH (09:32)
[2018-03-04] MEDS: IMDUR PO SCH (09:32)
[2018-03-04] MEDS: HEPARIN SUB-Q SCH (09:33)
[2018-03-04] MEDS: SODIUM CHLORIDE FLUSH SYRINGE 10 ML IV SCH (09:34)
[2018-03-04] MEDS ORDERED: IMDUR PO SCH (10:15)
[2018-03-04] MEDS: CARDURA PO SCH (10:59)
--- NOTE | 2018-03-04 11:45 | Progress Note ---
Assessment and Plan Impression * CKD stage 4 . Most likely secondary to DM * CHF * Anemia * Hypertension * diabetes * COPD * Prostate cancer Recommendation * His serum creatinine noted to be slightly higher . Suspect due to diuretics . Baseline creatinine is approx 3.6 in January * He seems to be responding to diuretics . No indication to initiate dialysis * Check 24 hour urine for creatinine clearance * Continue loop diuretics * Avoid nephrotoxins * Monitor fluid status and electrolytes closely * 24 hour urine collection in progress . OK to discharge from renal standpoint Subjective Date of service: 03/04/18 Interval history: pt feels better . SOB is better as well . No nausea or vomiting Objective - Vital Signs Vital signs: Vital Signs - 12hr 03/04/18 03/04/18 03/04/18 05:00 05:21 07:35 Temperature 98.9 F 98.9 F 97.5 F L Pulse Rate 75 77 76 Respiratory 18 20 18 Rate Blood Pressure 155/69 173/67 Blood Pressure 155/69 [Right] O2 Sat by Pulse 95 95 95 Oximetry 03/04/18 09:32 Temperature Pulse Rate 76 Respiratory Rate Blood Pressure 173/67 Blood Pressure [Right] O2 Sat by Pulse Oximetry - General Appearance General appearance: well-developed, well-nourished, appears stated age EENT: PERRL, mucous membranes moist Neck: no JVD, no thyromegaly Respiratory: Present: Decreased Breath Sounds Cardiology: regular, normal heart rate, S1S2, no murmurs Gastrointestinal: normal, normoactive bowel sounds Integumentary: no rash, other (trace to 1+ edema ) - Lab 03/02/18 12:46 03/04/18 05:46 Most recent lab results ABG pH 7.375 pH Units (7.350-7.450) 03/02/18 15:26 ABG pCO2 42.4 mm Hg 03/02/18 15:26 ABG pO2 89.1 mm Hg (80.0-90.0) 03/02/18 15:26 ABG HCO3 24.3 mmol/L (20.0-26.0) 03/02/18 15:26 ABG O2 Saturation 97.0 % (95.0-99.0) 03/02/18 15:26 Calcium 8.4 mg/dL (8.4-10.2) 03/04/18 05:46 Magnesium 2.30 mg/dL (1.7-2.3) 03/04/18 05:46
[2018-03-04] MEDS ORDERED: NORVASC PO SCH (12:00)
--- NOTE | 2018-03-04 12:00 | Progress Note ---
Assessment and Plan I will optimize his antihypertensive regimen. He may be discharged home from a cardiac standpoint this afternoon or in the a.m. - Patient Problems (1) Acute combined systolic and diastolic heart failure Current Visit: Yes Status: Acute (2) Ischemic cardiomyopathy Current Visit: Yes Status: Acute (3) History of coronary artery stent placement Current Visit: Yes Status: Chronic (4) CAD (coronary artery disease) Current Visit: Yes Status: Chronic Qualifiers: Coronary Disease-Associated Artery/Lesion type: [place] artery (5) Hypertension Current Visit: Yes Status: Chronic Qualifiers: Hypertension type: essential hypertension Qualified Code(s): I10 - Essential (primary) hypertension (6) Diabetes mellitus Current Visit: Yes Status: Chronic Qualifiers: Diabetes mellitus type: type 2 (7) CKD (chronic kidney disease) Current Visit: Yes Status: Chronic Qualifiers: Chronic kidney disease stage: stage 4 (severe) Qualified Code(s): N18.4 - Chronic kidney disease, stage 4 (severe) (8) COPD (chronic obstructive pulmonary disease) Current Visit: Yes Status: Chronic Qualifiers: Emphysema type: other Qualified Code(s): J44.9 - Chronic obstructive pulmonary disease, unspecified Subjective Date of service: 03/04/18 Principal diagnosis: Acute HFrEF, Ischemic CMP, CAD, s/p PCI, CKD Interval history: He feels much better. His BP is still elevated. Objective Vital Signs Temp Pulse Pulse Pulse Resp Resp BP 03/04/18 09:32 76 173/67 03/04/18 07:35 97.5 F L 76 18 173/67 03/04/18 05:21 98.9 F 77 20 155/69 03/04/18 05:00 98.9 F 75 18 03/03/18 22:51 78 177/76 03/03/18 22:50 78 177/76 03/03/18 22:43 97.4 F L 81 18 177/76 03/03/18 22:00 72 78 18 03/03/18 19:30 74 17 03/03/18 13:23 97.5 F L 72 18 125/46 03/03/18 12:55 71 23 BP Pulse Ox 03/04/18 09:32 03/04/18 07:35 95 03/04/18 05:21 95 03/04/18 05:00 155/69 95 03/03/18 22:51 03/03/18 22:50 03/03/18 22:43 96 03/03/18 22:00 96 03/03/18 19:30 03/03/18 13:23 94 03/03/18 12:55 - Physical Examination General: No Apparent Distress HEENT: Positive: EOMI, Normocephaly, Mucus Membranes Moist Neck: Positive: neck supple, trachea midline Cardiac: Positive: Reg Rate and Rhythm, S1/S2 Lungs: Positive: clear to auscultation Neuro: Positive: Grossly Intact Abdomen: Positive: Soft, Active Bowel Sounds. Negative: Tender Skin: Positive: Clear. Negative: Rash Musculoskeletal: Normal Range of Motion Extremities: Absent: edema - Labs and Meds Comprehensive Metabolic Panel 03/04/18 Range/Units 05:46 Sodium 136 L (137-145) mmol/L Potassium 4.8 (3.6-5.0) mmol/L Chloride 98.9 (98-107) mmol/L Carbon Dioxide 23 (22-30) mmol/L BUN 40 H (9-20) mg/dL Creatinine 3.8 H (0.8-1.5) mg/dL Glucose 201 H (75-100) mg/dL Calcium 8.4 (8.4-10.2) mg/dL - Imaging and Cardiology EKG: report reviewed, image reviewed Echo: report reviewed (11/2017 showed EF 40-45%, mildly dilated LA, mild LVH, grade I diastolic dysfunction, mild TR, mild MVR, large pleural effusion in left lateral region. ) Cardiac cath: report reviewed (PCI of LAD on 12/12/2017 (also with circ lesion and RCA lesion being treated medically)) - EKG Sinus rhythms and dysrhythmias: sinus rhythm Chamber hypertrophy or enlargement: left ventricular hypertro Repolarization changes or abnormalities: repolarization abn secondary to ventricular hypertrophy Myocardial infarction: anterior [place] (old age or i
[2018-03-04 13:12] VITALS: BP 136/51
[2018-03-04] MEDS ORDERED: DUONEB *Not for PRN Use IH SCH (14:00)
--- NOTE | 2018-03-04 15:55 | Discharge Summary ---
Providers - Providers Date of Admission: 03/02/18 22:26 Date of discharge: 03/04/18 Attending physician: MANGO PINEDA 03/03/18 10:25 Consult to Physician [CONS] Routine Comment: MARILOU Consulting Provider: MICHEAL PERSON Physician Instructions: CALLED DR NAILS @1045 (KAIN) Reason For Exam: ac on chr CHF 03/03/18 10:26 Consult to Physician [CONS] Routine Comment: MARILOU Consulting Provider: HEIDY RYAN Physician Instructions: LEFT MESSAGE FOR @ 1045 Reason For Exam: Acute on Chr.renal failure Primary care physician: CARPET CUTTER Hospitalization Condition: Stable Disposition: DC-01 TO HOME OR SELFCARE Time spent for discharge: 33 min Core Measure Documentation - Palliative Care Palliative Care/ Comfort Measures: Not Applicable - Core Measures Any of the following diagnoses?: none Exam - Constitutional Vitals: Temp Pulse Resp BP Pulse Ox 97.5 F L 65 18 136/51 95 03/04/18 07:35 03/04/18 13:12 03/04/18 08:20 03/04/18 13:12 03/04/18 13:07 General appearance: Present: no acute distress, well-nourished - EENT Eyes: Present: PERRL, EOM intact - Neck Neck: Present: supple, normal ROM - Respiratory Respiratory effort: normal Respiratory: negative: rales, rhonchi, wheezing - Cardiovascular Rhythm: regular Heart Sounds: Present: S1 & S2 - Extremities Extremities: no ischemia, No edema - Abdominal General gastrointestinal: Present: soft, non-tender, non-distended, normal bowel sounds - Integumentary Integumentary: Present: clear, warm - Musculoskeletal Musculoskeletal: strength equal bilaterally - Psychiatric Psychiatric: appropriate mood/affect, cooperative - Neurologic Neurologic: CNII-XII intact, moves all extremities Plan Activity: no restrictions, fall precautions Diet: diabetic, other (cardiac) Additional Instructions: Fall precautions Follow up with: PRIMARY MD JESSE [Primary Care Provider] - 3-5 Days SARA SCHULER MD [Staff Physician] - 7 Days HEIDY RYAN MD [Staff Physician] - 7 Days
[2018-03-04] MEDS ORDERED: HumaLOG SUB-Q SCH (17:54)
[2018-03-04 20:41] LABS: Creatinine 24 Hour,Urine 0.8 (0.8-2.8); Creatinine,Urine 50.4 mg/dL (0.1-20.0)
[2018-03-04 20:41] LABS: Creatinine,Urine 52.3 mg/dL (0.1-20.0)
[2018-03-05] MEDS ORDERED: LASIX IV SCH (10:00)
[2018-03-05] MEDS ORDERED: IMDUR PO SCH (10:00)
[2018-03-07] MEDS ORDERED: VITAMIN D2 PO SCH (10:00)
== END 2018-03-04 18:30 | disposition home or self-care (01) | DRG 682 ==
LOC: ED 11:12 → 2B-ACE 22:26
PROVIDERS: ADMIT Internal Medicine; ATTEND Internal Medicine
PROC: 4A033R1 Measurement of Arterial Saturation, Peripheral, Percutaneous Approach (ICD-10-PCS; principal; 2018-03-02)
DX: N17.9 Acute kidney failure, unspecified (principal); I50.41 Acute combined systolic (congestive) and diastolic (congestive) heart failure; I13.0 Hypertensive heart and chronic kidney disease with heart failure and stage 1 through stage 4 chronic kidney disease, or unspecified chronic kidney disease; J44.1 Chronic obstructive pulmonary disease with (acute) exacerbation; N18.4 Chronic kidney disease, stage 4 (severe); I16.0 Hypertensive urgency; Z85.46 Personal history of malignant neoplasm of prostate; I25.10 Atherosclerotic heart disease of native coronary artery without angina pectoris; Z79.82 Long term (current) use of aspirin; E11.22 Type 2 diabetes mellitus with diabetic chronic kidney disease; Z79.4 Long term (current) use of insulin; Z87.891 Personal history of nicotine dependence; E11.65 Type 2 diabetes mellitus with hyperglycemia; I25.5 Ischemic cardiomyopathy; I65.23 Occlusion and stenosis of bilateral carotid arteries; D64.9 Anemia, unspecified
CPT/HCPCS: 36415; 71045; 78582; 80048; 80061; 82565; 82570; 82575; 82803; 82962; 83735; 83880; 84484; 85025; 85379; 87040; 93005; 93010; 94640; 96374; 96375; A9270-GY; A9540; A9558; J0360; J1644; J1815; J1940; J1956; J2920